=== PATIENT | female | born 1995 | race Caucasian/White ===

== ENCOUNTER 2022-05-29 03:43 | Inpatient (IN) | payer OTHER ==
[~2022-05-29] VITALS: Ht 162.6 cm; Wt 79.8 kg
[2022-05-29 06:55] LABS: HGB 10.3 g/dl (12.5-16.0); MCH 31.6 pg (25.0-31.0); MCHC 33.2 g/dL (32.0-36.0); MCV 95.1 fL (78.0-100.0); MPV 12.2 fL (6.0-9.5); RBC 3.26 M/uL (4.20-5.40); RDW 13.3 % (11.5-14.0); WBC 20.3 K/uL (4.0-10.5)
[2022-05-29 09:02] LABS: CLARITY CLEAR (CLEAR); COLOR YELLOW (YELLOW); GLUCOSE (U) NORMAL (NORMAL); PROTEIN 1+ mg/dL (NEGATIVE); SPECIFIC GRAVITY 1.025 (1.001-1.030); pH 6.5 (5.0-9.0)
[2022-05-29 09:03] LABS: BILIRUBIN NEGATIVE (NEGATIVE); BLOOD 3+ Ery/uL (NEGATIVE); LEUKOCYTES 1+ Leu/uL (NEGATIVE); NITRITE NEGATIVE (NEGATIVE); UROBILINOGEN 0.2 mg/dL (0.2-1.0)
[2022-05-29 09:04] LABS: BACTERIA 1+; URINARY RBC 20-50
[2022-05-29 09:11] LABS: AMPHETAMINES NEGATIVE (NEGATIVE); BARBITURATES NEGATIVE (NEGATIVE); ECSTASY (MDMA) NEGATIVE (NEGATIVE); MARIJUANA (THC) NEGATIVE (NEGATIVE); METHADONE NEGATIVE (NEGATIVE); OPIATES NEGATIVE (NEGATIVE); OXYCODONE NEGATIVE (NEGATIVE)
[2022-05-29 12:15] LABS: BILIRUBIN NEGATIVE (NEGATIVE); BLOOD 3+ Ery/uL (NEGATIVE); CLARITY CLEAR (CLEAR); COLOR YELLOW (YELLOW); GLUCOSE (U) NORMAL (NORMAL); LEUKOCYTES NEGATIVE Leu/uL (NEGATIVE); NITRITE NEGATIVE (NEGATIVE); PROTEIN NEGATIVE (NEGATIVE); UROBILINOGEN 0.2 mg/dL (0.2-1.0)
[2022-05-29 12:24] LABS: BACTERIA TRACE; URINARY RBC 20-50
[2022-05-29 16:31] LABS: HCT 31.7 % (37.0-47.0); HGB 10.4 g/dl (12.5-16.0); MCH 31.2 pg (25.0-31.0); MCHC 32.8 g/dL (32.0-36.0); MCV 95.2 fL (78.0-100.0); MPV 11.7 fL (6.0-9.5); PLT 300 K/uL (150-400); RBC 3.33 M/uL (4.20-5.40); RDW 13.2 % (11.5-14.0)
[2022-05-29 16:59] LABS: BASOPHIL 0.6 % (0-2); EOSINOPHIL 0.1 % (0-5); LYMPHOCYTE 5.5 % (15-48); MONOCYTE 5.1 % (0-12); NRBC 0
[2022-05-30 06:25] LABS: BASOPHIL 0.6 % (0-2); EOSINOPHIL 0.6 % (0-5); HCT 28.1 % (37.0-47.0); HGB 9.4 g/dl (12.5-16.0); LYMPHOCYTE 14.2 % (15-48); MCH 31.6 pg (25.0-31.0); MCHC 33.5 g/dL (32.0-36.0); MCV 94.6 fL (78.0-100.0); MONOCYTE 9.6 % (0-12); MPV 11.8 fL (6.0-9.5); NEUTROPHIL 73.3 % (41-80); NRBC 0; PLT 297 K/uL (150-400); RBC 2.97 M/uL (4.20-5.40); RDW 13.3 % (11.5-14.0); WBC 18.8 K/uL (4.0-10.5)
== END 2022-05-31 14:21 | disposition home or self-care (01) | DRG 806 ==
LOC: FOB 03:43
PROVIDERS: ADMIT Specialist
PROC: 10E0XZZ Delivery of Products of Conception, External Approach (ICD-10-PCS; principal; 2022-05-29)
DX: O42.013 Preterm premature rupture of membranes, onset of labor within 24 hours of rupture, third trimester (principal); D62 Acute posthemorrhagic anemia; Z37.0 Single live birth; O99.12 Other diseases of the blood and blood-forming organs and certain disorders involving the immune mechanism complicating childbirth; D72.829 Elevated white blood cell count, unspecified; O99.02 Anemia complicating childbirth; D50.9 Iron deficiency anemia, unspecified; Z3A.36 36 weeks gestation of pregnancy; Z67.91 Unspecified blood type, Rh negative
CPT/HCPCS: 36415; 80305; 81001; 84112; 85025; 85461; 86850; 86900; 86901; 87070; 87088; J2540; J2790; J2795; J3010; J7120